=== PATIENT | male | born 1975 | race Hispanic/Latino ===

== ENCOUNTER 2018-11-05 18:05 | Emergency (ER) | payer BC ==
[~2018-11-05] VITALS: Ht 170.2 cm; Wt 98.7 kg
--- OUTSIDE RECORDS SUMMARY | 2018-11-05 18:08 | XMS REPORT ---
[facility] Address Unknown Phone Unavailable Care Team Providers Care Air Sampling And Monitoring Name Role Phone Unavailable Unavailable Payers Payer Name Policy Type Policy Number Effective Date Expiration Date Problems This patient has no known problems. Allergies, Adverse Reactions, Alerts Allergy Name Allergy Type Status Severity Reaction(s) Onset Date Inactive Date Treating Clinician Comments No Known Allergies DA Active U 2015-12-05 00:00:00 Medications This patient has no known medications.
--- OUTSIDE RECORDS SUMMARY | 2018-11-05 18:08 | XMS REPORT | Clinical Summary ---
Author Author [facility] Address Unknown Phone Unavailable Care Team Providers Care Rack Washer Name Role Phone Asked, No Pcp PCP Unavailable Allergies No Known Allergies Medications No known medications Active Problems Not on file Social History Date Tobacco Use Types Packs/Day Years Used Never Assessed Sex Assigned at Date Recorded Not on file Industry Job Start Date Occupation Not on file Not on file Not on file Travel End Travel History Travel Start No recent travel history available. Last Filed Vital Signs Not on file Plan of Treatment Not on file Results Not on fileafter 11/04/2017 Insurance Type Payer Benefit Subscriber ID Effective Phone Address Plan / Dates Group PPO BCBS BCBS OUT xxxxxxxxxxxx 2014- OF STATE Present Advance Directives Patient has advance care planning documents on file. For more information, rojelio ascencio contact: David Orosco [address] [place] [id number]
--- NOTE | 2018-11-05 18:39 | NUR ---
Report to JEREMY Mackenzie
--- NOTE | 2018-11-05 19:34 | Diagnostic Imaging Report ---
EXAMINATION: Lumbar spine series. CLINICAL HISTORY: Low back pain COMPARISON: None. DISCUSSION: 3 views of the lumbar spine are submitted for interpretation. Five nonrib-bearing lumbar type vertebral bodies are identified. No acute, displaced fractures or subluxation. No spondylolisthesis. Mild S-shaped curvature of the thoracolumbar spine. Degenerative disc changes predominantly at L5-S1 with moderate intervertebral disc space narrowing. Other intervertebral disc spaces are preserved. Vertebral body heights are preserved. Sacroiliac joints are unremarkable. Soft tissues have a normal appearance. IMPRESSION: 1. No acute abnormalities. 2. Mild degenerative changes at L5-S1. The staff physician below has personally reviewed this exam on the date of dictation. Signed by: Dr. Amarjit Ha M.D. on 11/05/2018 7:31 PM
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
[2018-11-05 20:06] VITALS: BP 127/72
== END 2018-11-05 20:13 | disposition home or self-care (01) ==
LOC: FSED 18:05
DX: M54.2 Cervicalgia (principal); S16.1XXA Strain of muscle, fascia and tendon at neck level, initial encounter; M54.5 Low back pain; S39.012A Strain of muscle, fascia and tendon of lower back, initial encounter; M47.816 Spondylosis without myelopathy or radiculopathy, lumbar region; V43.52XA Car driver injured in collision with other type car in traffic accident, initial encounter; Y92.488 Other paved roadways as the place of occurrence of the external cause
CPT/HCPCS: 72100; 72125; 99283